=== PATIENT | female | born 1990 | race Caucasian/White ===

== ENCOUNTER 2016-09-05 05:34 | Inpatient (IN) | payer BC ==
[~2016-09-05 05:34] MED LIST: Citric Acid/Sodium Citrate Solution 30 ML Cup PO ONE; Clindamycin Phosphate 900 MG in Sodium Chloride 0.9% 100 ML IV ONE; Metoclopramide 10 MG/2 ML SDV IVPUSH ONE; Sodium Chloride 0.9% 10 ML Syringe FLUSH PRN
[2016-09-05] MEDS: Lactated Ringers 1,000 ML IV SCH ×2 (06:15→07:00)
[2016-09-05] MEDS ORDERED: Bupivacaine 0.5% 30 ML SDV ONE (06:54)
[2016-09-05] MEDS ORDERED: Morphine PF 10 MG/10 ML SDV ONE (07:46)
--- NOTE | 2016-09-05 07:54 | HP ---
Kellee has decided on a repeat [id number], benefits, follow up d/w pt. Consent is signed. Labs to include CBC, T and S. DATE OF ADMISSION: 09/05/2016 ADMISSION DIAGNOSIS: Term intrauterine at 39 and 5/7th weeks' gestational age, history of previous section with desire for repeat section. HISTORY OF PRESENT ILLNESS: The patient is a 25-year-old 3, para 1-0-1-1, white female, who will be admitted on 09/05/2016 for elective repeat section. The procedure, risks, benefits, possible complications, alternatives of care were all discussed in detail with the patient. She appears to understand and wishes to proceed. The patient has had a previous section done for failure to progress with resultant delivery of 9 pounds 7 ounce male infant in 2013. ANTHROPOLOGICAL LINGUIST HISTORY: 3, para 1-0-1-1, with 1 section and 1 miscarriage. The patient had menarche at age 11. Cycles are somewhat irregular at every 30 to 60 days. LMP started on 12/02/2015. Positive hCG was on 12/29/2015. The patient's is dated by her last menstrual period and this is supported by an ultrasound done on 05/17/2016 and at least 6 ultrasounds since that time. Prenatally, the patient has done relatively well. Her other concerns that she has been on labetalol for what was felt to be gestational hypertension. She initially thought about a trial labor to attempt a vaginal after section, but has decided not to. She declined genetic screening during the course. She declined flu vaccination. She declined Tdap vaccination. Her [place] depression screen score on 04/12/2016 was score of 3. This is normal. Group B strep screen was negative. The patient did have some dyspepsia during , which she treated conservatively. She has mild exercise-induced asthma. She has a history of polycystic ovarian syndrome. She also has occasional supraventricular tachycardia. She has a thyroid nodule. She had an abnormal glucose tolerance test of 137, but on evaluation of 3-hour it was normal. Her first visit was on 02/16/2016 at 10 and 6/7th weeks' gestational age. She is seen on a regular basis since that time and has gained 45 pounds up to a weight of 242 pounds. Her first visit weight was 209 pounds. Her blood pressures were normal until approximately 07/2016 at which time, they became somewhat elevated, and the patient was evaluated for preeclampsia. Her blood pressures were felt to be possibly a gestational hypertension in origin. She is presently on labetalol 100 mg p.o. q.12 hours. She has been doing very well with this. LABORATORY TESTING: In , shows blood to be O positive with a negative antibody screen. Early hemoglobin was 13.6, MCV was 90.4, and platelets were 240. Pap smear was negative. Rubella titer shows immunity. RPR is nonreactive. Hepatitis B surface antigen and HIV assays were negative. Chlamydia and gonorrhea were negative. Second trimester testing showed a hemoglobin of 12.0, an MCV of 91.5, platelets of 200. Her 1-hour GTT was 131, but her 3-hour GTT was 85 at fasting; 175 at 1 hour; 156 at 2 hours, and 3-hour level was 61. Her group B strep screen is negative. ALLERGIES: Bactrim which causes shortness of breath and cephalexin caps. CURRENT MEDICATIONS: 1. ProAir HFA 108 inhalation aerosol 2 puffs q.30 minutes p.r.n. prior to exercise. 2. Calcium 600 mg 1 tablet daily. 3. Dehydroepiandrosterone 25 mg tablets daily. 4. Labetalol 100 mg p.o. q.12 hours. 5. Albuterol sulfate nebulization solution p.r.n. 6. vitamins 1 daily. PAST MEDICAL HISTORY: 1. History of abnormal Pap smear. 2. History of asthma which is exercise-induced. 3. History of thyroid nodule diagnosed in 05/2015, stable on repeat evaluation in 11/2015. 4. Gestational hypertension. PAST SURGICAL HISTORY: Primary section for failure to progress in 2013. FAMILY HISTORY: Unremarkable. Specifically unremarkable for anesthesia, bleeding, or blood clotting problems. 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 She is college graduate. She does not use any significant amounts of alcohol, drugs, or tobacco. REVIEW OF SYSTEMS: HEAD, EARS, EYES, NOSE, and THROAT: Negative. LUNGS: Clear. CARDIOVASCULAR: Shows regular rate and rhythm. BREASTS: Deferred. ABDOMEN: Protuberant with with fundal height of 39 cm with baby in vertex presentation. Cervix is 2 cm dilated, 50% effaced, soft, posterior. EXTREMITIES: Unremarkable. NEUROLOGIC: Unremarkable. ASSESSMENT: 1. A 39 and 5/7th week intrauterine . At this time, the patient is admitted for elective induction of labor. 2. Risk factors for surgery include history of previous surgery and increased weight. 3. The patient desires spinal anesthesia for surgery. 4. The patient plans to nurse. PLAN: 1. Primary lower uterine segment transverse section through Pfannenstiel skin incision under spinal block scheduled for 09/05/2016 at 0800 hours. 2. DVT prophylaxis with SCDs. 3. Infection prophylaxis with clindamycin and gentamicin per protocol as the patient is allergic to Keflex. 4. Preoperative evaluation consists of CBC, type and screen. MMODAL /[id number]
[2016-09-05] MEDS ORDERED: ceFAZolin 1 GM Vial ONE (08:10)
--- NOTE | 2016-09-05 08:24 | PCM.PREANE ---
Preanesthetic Assessment - Anesthesia/Transfusion/Family Hx Anesthesia History: Prior Anesthesia Without Reaction (prior difficult spinal/ epidural, GA without problem) Family History of Anesthesia Reaction: No Transfusion History: No Prior Transfusion(s) - Review of Systems General: No Symptoms Pulmonary: No Symptoms Cardiovascular: Palpitations (secondary to known SVT since shildhood. treated with beta-cristóbal. Pt states she has almost daily paroxysms of SVT. no syncope ) Gastrointestinal: No symptoms Neurological: No Symptoms Other: Reports: None - Physical Assessment NPO Status Date: 09/04/16 NPO Status Time: 23:30 O2 Sat by Pulse Oximetry: 96 Respiratory Rate: 16 Vital Signs: Last Vital Signs Temp 36.2 C 09/05/16 00:12 Pulse 93 09/05/16 00:12 Resp 16 09/05/16 00:12 BP 130/81 09/05/16 00:12 Pulse Ox 96 09/05/16 00:12 Height: 1.73 m Weight: 110.45 kg ASA Class: 2 Mental Status: Alert & Oriented x3 Dentition: Reports: Normal Dentition Thyro-Mental Finger Breadths: 3 Mouth Opening Finger Breadths: 3 ROM/Head Extension: Full Lungs: Clear to auscultation, Normal respiratory effort Cardiovascular: Regular Rate, Regular Rhythm - Lab Values: CBC essentially normal with isolated elevated WBC count - Allergies Allergies/Adverse Reactions: Allergies Allergy/AdvReac Type Severity Reaction Status Date / Time cephalexin [Cephalexin] Allergy Cannot Verified 09/05/16 07:17 Remember sulfamethoxazole Allergy Difficulty Verified 09/05/16 07:17 [From Bactrim] Breathing trimethoprim [From Bactrim] Allergy Difficulty Verified 09/05/16 07:17 Breathing - Blood Blood Available: No - Anesthesia Plan Beta Cristóbal: Labetalol Med Last Dose Date: 09/04/16 Med Last Dose Time: 19:00 - Acknowledgements Anesthesia Type Planned: Spinal Pt an Appropriate Candidate for the Planned Anesthesia: Yes Alternatives and Risks of Anesthesia Discussed w Pt/Guardian: Yes Pt/Guardian Understands and Agrees with Anesthesia Plan: Yes PreAnesthesia Questionnaire - Past Health History Medical/Surgical History: Denies Medical/Surgical History Cardiovascular History: Reports: Hypertension, Other (see below) Other Cardiovascular History: SVT Respiratory History: Reports: Asthma BASS SINGER History: Reports: Polycystic Ovaries, , Spontaneous Endocrine/Metabolic History: Reports: Other (see below) Other Endocrine/Metabolic History: Nodule on thyroid - Past Surgical History HEENT Surgical History: Reports: Adenoidectomy, Oral surgery (wisdom teeth extractions), Tonsillectomy Cardiovascular Surgical History: Reports: None Female Surgical History: Reports: section - SUBSTANCE USE Smoking Status *Q: Never Smoker Tobacco Use Within Last Twelve Months: No Second Hand Smoke Exposure: No Days Per Week of Alcohol Use: 0 Recreational Drug Use History: No - HOME MEDS Home Medications: Home Meds Acetaminophen/oxyCODONE [Percocet 325-5 MG] 2 tab PO Q4H PRN #30 tablet [Rx] Docusate Sodium [Colace] 100 mg PO Q12H PRN #30 cap 02/07/14 [Rx] Ibuprofen 200 mg PO Q6HR PRN #50 tablet 02/07/14 [Rx] Labetalol [Normodyne] 100 mg PO BID #30 tablet 02/07/14 [Rx] Lanolin [Lansinoh HPA] 1 gm TOP ASDIRECTED PRN #1 crm 02/07/14 [Rx] Vit with Ca/FA/Iron [ Plus Iron] 1 each PO DAILY #100 tablet [Rx] - CURRENT (IN HOUSE) MEDS Current Meds: Current Medications Gentamicin Sulfate 550 mg/ (Sodium Chloride) 113.75 mls @ 200 mls/hr IV .ONETIME KRISTIN Lactated Ringer's (Ringers, Lactated) 1,000 mls @ 125 mls/hr IV ASDIRECTED KRISTIN Last Admin: 09/05/16 07:00 Dose: 125 mls/hr Oxytocin 20 unit/ Lactated (Ringer's) 1,002 mls @ 500 mls/hr IV ASDIRECTED KRISTIN Sodium Chloride (Saline Flush) 10 ml FLUSH ASDIRECTED PRN PRN Reason: Keep Vein Open Discontinued Medications Bupivacaine HCl (Marcaine 0.5%) Confirm Administered Dose 30 ml .ROUTE .STK-MED ONE Stop: 09/05/16 06:55 Cefazolin Sodium (Ancef) Confirm Administered Dose 2 gm .ROUTE .STK-MED ONE Stop: 09/05/16 08:11 Citric Acid/Sodium Citrate (Bicitra Solution) 30 ml PO ONETIME ONE Stop: 09/05/16 05:31 Last Admin: 09/05/16 07:23 Dose: 30 ml Clindamycin Phosphate 900 mg/ (Sodium Chloride) 106 mls @ 100 mls/hr IV ONETIME ONE Stop: 09/05/16 01:15 Clindamycin Phosphate 900 mg/ (Sodium Chloride) 106 mls @ 100 mls/hr IV ONETIME ONE Stop: 09/05/16 06:33 Metoclopramide HCl (Reglan) 10 mg IVPUSH ONETIME ONE Stop: 09/05/16 05:31 Last Admin: 09/05/16 07:23 Dose: 10 mg Morphine Sulfate (Duramorph Pf) Confirm Administered Dose 10 mg .ROUTE .STK-MED ONE Stop: 09/05/16 07:47 Preanesthetic Assessment - ANESTHESIA/TRANSFUSION/FAMILY HX Anesthesia/Transfusion History: No Prior Transfusion(s), Prior Anesthesia Family History of Anesthesia Reaction: No Intubation History: Unknown - PHYSICAL ASSESSMENT O2 Sat by Pulse Oximetry: 96 RR: 16 Vital Signs: Last Vital Signs Temp 36.2 C 09/05/16 00:12 Pulse 93 09/05/16 00:12 Resp 16 09/05/16 00:12 BP 130/81 09/05/16 00:12 Pulse Ox 96 09/05/16 00:12 Height: 1.73 m Weight: 110.45 kg NPO Status Date: 09/04/16 NPO Status Time: 23:30 - ALLERGIES Allergies/Adverse Reactions: Allergies Allergy/AdvReac Type Severity Reaction Status Date / Time cephalexin [Cephalexin] Allergy Cannot Verified 09/05/16 07:17 Remember sulfamethoxazole Allergy Difficulty Verified 09/05/16 07:17 [From Bactrim] Breathing trimethoprim [From Bactrim] Allergy Difficulty Verified 09/05/16 07:17 Breathing
--- NOTE | 2016-09-05 08:47 | PCM.OPNOTE ---
- General Post-Op/Procedure Note Date of Surgery/Procedure: 09/05/16 Operative Procedure(s): repeat lower uterine segment transverse section through Pfannenstiel skin Findings: uterus tubes and ovaries were within normal limits for term . Effluent was clear. Baby is in a vertex presentation the center was fundal and posterior with no evidence of previa. The cervix was dilated 2 cm. Pre Op Diagnosis: term intrauterine at 39 weeks, history of previous section with desire for repeat section Post-Op Diagnosis: Samedelivery of a 9 lbs. 1 oz. male Anesthesia Technique: Spinal Other Anesthesia Type: local with Marcaine 0.5%-20 cc total Primary Surgeon: Long Lui Secondary Surgeon: David Griffith Anesthesia Provider: Huy Salinas Housekeeping Lead: Vijaya Ocampo Fluid Replacement, Intraop: 650 Output, Urine Amount: 650 EBL in mLs: 900 Drain/Tube Comments:: indwelling bladder catheter Complications: None Condition: Good Free Text/Narrative:: Intake & Output 09/04/16 09/05/16 09/05/16 22:59 06:59 14:59 Output Total 650 Balance -650 surgeon duration: 40 minutes Specimens: None Condition: Satisfactory Procedure: Patient was transferred the room and placed in a sitting position. Spinal anesthesia was administered. After adequate anesthesia patient was placed in a supine position with a wedge under her right side to facilitate left lateral positioning. The patient was prepped and draped in usual fashion after Victor catheter was placed. The anesthetic was checked and found to be adequate. Marcaine 0.5%-20 cc was infiltrated into the section incision site. The Pfannenstiel skin incision was then made carried down to skin subcutaneous and fascial layers. The fascia was then undermined superiorly and inferiorly to allow for adequate operating room. The recti muscles were midline and preperitoneal fat was bluntly dissected. Peritoneal cavity was entered longitudinally. The vesicouterine peritoneum was then incised transversely and bladder flap was developed. Myometrium was incised transversely to the level of the amniotic sac. This incision was extended bilaterally in a blunt fashion. The amniotic sac was then ruptured resulting clear amniotic fluid. A hand is placed into the lower uterine segment and the baby's head was brought forth through the incision. The baby was completely delivered using with fundal pressure in a routine fashion. The nose and mouth were bulb suctioned. Baby's cord was clamped x2 cut and baby was handed off to attending cook fruit Dr. Pina. Placenta was expressed after cord blood was obtained. Uterus was then exteriorized to allow for easier closure. The cervix was assessed and found to be dilated adequately to allow egress of blood. The uterus was closed in 2 layers. The first layer a running locked suture of 0 Monocryl, the second layer a running locked vertical mattress suture of 0 Monocryl. Hemostasis confirmed at this time. Sponge, instrument, needle counts are correct. The uterus was returned to the abdominal cavity and lateral gutters were cleared of blood. Once again sponge, needle counts are correct. The anterior abdominal wall was closed with a #1 PDS suture from angle to angle. The subcutaneous area was found to be free of any bleeders. Skin was closed with a running subcuticular stitch of 3-0 Monocryl in a vertical mattress suture fashion using a Renzo needle. It was further approximated with Dermabond Prineo skin mesh/glue. It should be noted that patient received 2 g of Ancef preoperatively for infection prophylaxis and had Pitocin infused after delivery of the placenta to facilitate uterine contraction. She also had sequential compression stockings in place for DVT prophylaxis.
--- NOTE | 2016-09-05 08:54 | PCM.POSTAN ---
POST ANESTHESIA ASSESSMENT - MENTAL STATUS Mental Status: alert, oriented - VITAL SIGNS Pulse Rate: 84 SaO2: 98 Resp Rate: 12 Blood Pressure: 134/69 Temperature: 36.9 C - RESPIRATORY Respiratory Status: respiratory rate WNL, airway patent, O2 saturation stable - CARDIOVASCULAR CV Status: pulse rate WNL, blood pressure stable - GASTROINTESTINAL GI Status: no symptoms - PAIN Pain Score: 0 - POST OP HYDRATION Hydration Status: adequate & stable
[2016-09-05] MEDS ORDERED: Ketorolac 30 MG/ML SDV IVPUSH SCH (09:00)
[2016-09-05] MEDS ORDERED: ePHEDrine 50 MG/ML SDV IVPUSH PRN (09:38)
[2016-09-05] MEDS ORDERED: diphenhydrAMINE 50 MG/ML SDV IVPUSH PRN (09:38)
[2016-09-05] MEDS ORDERED: Dextrose 5%-Lactated Ringers 1,000 ML IV SCH (09:38)
[2016-09-05] MEDS ORDERED: Naloxone 0.4 MG/ML SDV IVPUSH PRN (09:38)
[2016-09-05] MEDS ORDERED: Lanolin 100% Cream 7 GM Tube TOP PRN (09:38)
[2016-09-05] MEDS ORDERED: Ondansetron 4 MG/2 ML SDV IV PRN (09:38)
[2016-09-05] MEDS ORDERED: Dextrose 5%-0.45% NaCl 1,000 ML IV SCH (09:38)
[2016-09-05] MEDS: Simethicone 80 MG Tab.Chew PO SCH ×4 (11:27→22:02)
[2016-09-05] MEDS: Docusate Sodium 100 MG Cap PO PRN (13:27)
[2016-09-05] MEDS ORDERED: Ibuprofen 800 MG Tab PO PRN ×2 (15:00→23:03)
[2016-09-05] MEDS: Ibuprofen 800 MG Tab PO SCH (23:04)
[2016-09-06] MEDS: Acetaminophen/oxyCODONE 325-5 MG Tab PO PRN ×3 (06:13→16:25)
[2016-09-06] MEDS: Ibuprofen 800 MG Tab PO SCH ×2 (06:54→15:36)
--- NOTE | 2016-09-06 09:00 | PCM48HPAN ---
Post Anesthesia Note - EVALUATION WITHIN 48HRS OF ANESTHETIC Vital Signs in Normal Range: Yes Patient Participated in Evaluation: Yes Respiratory Function Stable: Yes Airway Patent: Yes Cardiovascular Function Stable: Yes Hydration Status Stable: Yes Pain Control Satisfactory: Yes Nausea and Vomiting Control Satisfactory: Yes Mental Status Recovered: Yes - COMMENTS/OBSERVATIONS Free Text/Narrative:: Pt doing well, pleased with anesthesia service overall. denies fever,/chills, n /v, or headache. reports full recovery from spinal for both strength and sensation. up to restroom without difficulty, taking p.o., reports minor soreness at spinal site.
[2016-09-06] MEDS: Simethicone 80 MG Tab.Chew PO SCH ×3 (09:14→17:26)
--- NOTE | 2016-09-06 09:23 | PCM.SN ---
- Free Text/Narrative Note: Subjective: Kellee is post-operative day #1 today. She is feeling pretty good, pain is well controlled. She states nursing is going much better than her last as baby is latching well. She is looking forward to taking a shower today. Objective: Vital signs are stable. She is afebrile. Cardiovascular: Regular rate and rhythm, without murmur. Respiratory: Clear to auscultation, bilaterally. Abdomen is soft, nondistended, and nontender. Incision in intact, without erythema or signs of infection. No peripheral edema or swelling. Assessment: 1. Post-repeat section day #1 2. Pain controlled. 3. Nursing going well. Plan: 1. Patient may go home as early as tomorrow. 2. Continue to stay on top of pain. 3. Encourage nursing behaviors.
[2016-09-07] MEDS: Ibuprofen 800 MG Tab PO SCH ×4 (00:32→22:51)
[2016-09-07] MEDS: Simethicone 80 MG Tab.Chew PO SCH ×5 (00:35→22:51)
[2016-09-07] MEDS: Acetaminophen/oxyCODONE 325-5 MG Tab PO PRN ×4 (02:44→18:04)
[2016-09-07] MEDS: Docusate Sodium 100 MG Cap PO PRN ×2 (06:43→22:50)
--- NOTE | 2016-09-07 08:49 | PCM.SN ---
- Free Text/Narrative Note: Subjective: Kellee is post-operative day #2 today. She is doing well, pain is well controlled - she had a little more pain later yesterday afternoon but medication easily took care of it. Nursing is going well still. She would like to stay until tomorrow. Objective: Vital signs are stable. She is afebrile. Abdomen is soft, nondistended, and nontender. Incision in intact, without erythema or signs of infection. No peripheral edema or swelling. Assessment: 1. Post-repeat section day #2 2. Pain controlled. 3. Nursing going well. Plan: 1. Discharge tomorrow morning. 2. Continue to stay on top of pain with medication. 3. Encourage nursing behaviors.
[2016-09-08] MEDS: Acetaminophen/oxyCODONE 325-5 MG Tab PO PRN ×2 (03:44→10:29)
--- NOTE | 2016-09-08 06:37 | PCM.DCSUM1 ---
Discharge Summary - Hospital Course Free Text/Narrative:: Kellee is a 25-year-old 2 now para 2002 white female who was admitted 3 days ago for elective repeat section. She delivered a 9 lbs. 1 oz. male infant with Apgars of 8 and 9. Postoperatively patient has done very well. She is nursing without problems, has minimal lochia, is voiding well and ambulating without concerned. Patient is desiring discharge today. - Discharge Data Discharge Date: 09/08/16 Discharge Disposition: Home, Self-Care 01 Condition: Good - Patient Summary/Data Operative Procedure(s) Performed: repeat lower uterine segment transverse section through Pfannenstiel skin - Patient Instructions Diet: Regular Diet as Tolerated (nursing diet and increase calories and calcium as directed) Activity: As Tolerated (No intercourse or tampons until seen back. No lifting greater than 15 pounds or driving a car x1 week.) Driving: Do Not Drive Showering/Bathing: May Shower Wound/Incision Care: Keep Operative Site/Wound Site Clean and Dry Notify Provider of: Fever, Increased Pain, Swelling and Redness, Drainage, Nausea and/or Vomiting - Discharge Plan Prescriptions/Med Rec: Acetaminophen/oxyCODONE [Percocet 325-5 MG] 2 tab PO Q4H PRN #30 tablet PRN Reason: Pain Home Medications: Home Meds Acetaminophen/oxyCODONE [Percocet 325-5 MG] 2 tab PO Q4H PRN #30 tablet [Rx] Docusate Sodium [Colace] 100 mg PO Q12H PRN #30 cap 02/07/14 [Rx] Ibuprofen 200 mg PO Q6HR PRN #50 tablet 02/07/14 [Rx] Lanolin [Lansinoh HPA] 1 gm TOP ASDIRECTED PRN #1 crm 02/07/14 [Rx] Vit with Ca/FA/Iron [ Plus Iron] 1 each PO DAILY #100 tablet [Rx] Acetaminophen/oxyCODONE [Percocet 325-5 MG] 2 tab PO Q4H PRN #30 tablet [Rx] Ibuprofen [IJD: Ibuprofen] 800 mg PO Q8H tablet 09/08/16 [Rx] Referrals: Long Lui MD [Physician] - (Return to clinic-Dr. Lui in 7-10 days for blood pressure evaluation. Four-week's from now for a final postoperative follow up.) - Discharge Summary/Plan Comment DC Time >30 min.: No Discharge Summary/Plan Comment: Discharge instructions: 1. Discharge 1 para 2. Regular, high-fiber, nursing diet with increase calories and calcium as discussed. 3. Precautions given concern increased pain, bleeding, temperature, blood pressure, signs/symptoms of DVT/PE. 4. Medications per home medication was printed, discussed with him given to the patient 5. Return to clinic-Dr. Lui-7-10 days-blood pressure evaluation. Also make an appointment for 4 weeks from now for final postoperative evaluation. Diagnosis: 1. 39 week intrauterine , history of previous section desire for repeat section-delivered 2. Gestational hypertension-postoperative blood pressures within normal limits. Condition: Good - Patient Data Vitals - Most Recent: Last Vital Signs Temp 36.9 C 09/08/16 03:39 Pulse 82 09/08/16 03:39 Resp 16 09/08/16 03:39 BP 143/79 H 09/08/16 03:39 Pulse Ox 100 09/08/16 03:40 Weight - Most Recent: 110.45 kg I&O - Last 24 hours: Intake & Output 09/07/16 09/07/16 09/08/16 14:59 22:59 06:59 Intake Total 120 0 Balance 120 0 Med Orders - Current: Current Medications Diphenhydramine HCl (Benadryl) 25 mg IVPUSH Q6H PRN PRN Reason: Itching or Nausea Docusate Sodium (Colace) 100 mg PO Q12H PRN PRN Reason: Constipation Last Admin: 09/07/16 22:50 Dose: 100 mg Emollient Ointment (Lansinoh Hpa) 0 gm TOP ASDIRECTED PRN PRN Reason: Sore Nipples Last Admin: 09/05/16 13:28 Dose: 1 applic Ephedrine Sulfate (Ephedrine Sulfate) 5 mg IVPUSH SEECOMMENT PRN PRN Reason: Other Dextrose/Sodium Chloride (Dextrose 5%-1/2 Ns) 1,000 mls @ 125 mls/hr IV ASDIRECTED KRISTIN Last Admin: 09/05/16 17:55 Dose: 125 mls/hr Ibuprofen (Motrin) 800 mg PO Q8H KRISTIN Last Admin: 09/07/16 22:51 Dose: 800 mg Naloxone HCl (Narcan) 0.1 mg IVPUSH SEECOMMENT PRN PRN Reason: Respiratory Depression Ondansetron HCl (Zofran) 4 mg IV Q4H PRN PRN Reason: Nausea/Vomiting Last Admin: 09/05/16 11:00 Dose: 4 mg Oxycodone/Acetaminophen (Percocet 325-5 Mg) 2 tab PO Q4H PRN PRN Reason: Pain (moderate 4-6) Last Admin: 09/08/16 03:44 Dose: 2 tab Simethicone (Simethicone) 80 mg PO PCBED [facility] Last Admin: 09/07/16 22:51 Dose: 80 mg Discontinued Medications Bupivacaine HCl (Marcaine 0.5%) Confirm Administered Dose 30 ml .ROUTE .STK-MED ONE Stop: 09/05/16 06:55 Last Admin: 09/05/16 07:58 Dose: 20 ml Cefazolin Sodium (Ancef) Confirm Administered Dose 2 gm .ROUTE .STK-MED ONE Stop: 09/05/16 08:11 Citric Acid/Sodium Citrate (Bicitra Solution) 30 ml PO ONETIME ONE Stop: 09/05/16 05:31 Last Admin: 09/05/16 07:23 Dose: 30 ml Clindamycin Phosphate 900 mg/ (Sodium Chloride) 106 mls @ 100 mls/hr IV ONETIME ONE Stop: 09/05/16 01:15 Last Admin: 09/06/16 13:31 Dose: Not Given Gentamicin Sulfate 550 mg/ (Sodium Chloride) 113.75 mls @ 200 mls/hr IV .ONETIME [facility] Lactated Ringer's (Ringers, Lactated) 1,000 mls @ 125 mls/hr IV ASDIRECTED [facility] Last Admin: 09/05/16 07:00 Dose: 125 mls/hr Clindamycin Phosphate 900 mg/ (Sodium Chloride) 106 mls @ 100 mls/hr IV ONETIME ONE Stop: 09/05/16 06:33 Last Admin: 09/06/16 07:38 Dose: Not Given Oxytocin 20 unit/ Lactated (Ringer's) 1,002 mls @ 500 mls/hr IV ASDIRECTED [facility] Last Admin: 09/05/16 09:24 Dose: 500 mls/hr Dextrose/Lactated Ringer's (Dextrose 5%-Lactated Ringers) 1,000 mls @ 125 mls/ hr IV ASDIRECTED KRISTIN Stop: 09/05/16 17:37 Last Admin: 09/05/16 11:27 Dose: 125 mls/hr Ibuprofen (Motrin) 800 mg PO Q8H PRN PRN Reason: mild pain or fever Last Admin: 09/05/16 15:12 Dose: 800 mg Ibuprofen (Motrin) 800 mg PO Q8H PRN PRN Reason: Pain Ketorolac Tromethamine (Toradol) 30 mg IVPUSH ONETIME KRISTIN Stop: 09/05/16 16:00 Last Admin: 09/05/16 09:05 Dose: 30 mg Metoclopramide HCl (Reglan) 10 mg IVPUSH ONETIME ONE Stop: 09/05/16 05:31 Last Admin: 09/05/16 07:23 Dose: 10 mg Morphine Sulfate (Duramorph Pf) Confirm Administered Dose 10 mg .ROUTE .STK-MED ONE Stop: 09/05/16 07:47 Sodium Chloride (Saline Flush) 10 ml FLUSH ASDIRECTED PRN PRN Reason: Keep Vein Open *Q Meaningful Use (DIS) - VTE *Q VTE Criteria *Q: - Stroke *Q Stroke Criteria *Q: - AMI *Q AMI Criteria *Q:
[2016-09-08] MEDS: Ibuprofen 800 MG Tab PO SCH (07:18)
[2016-09-08 10:51] VITALS: BP 135/82
== END 2016-09-08 11:40 | disposition home or self-care (01) | DRG 540 ==
LOC: JD.OB 05:34
PROVIDERS: ADMIT Obstetrics & Gynecology; ATTEND Obstetrics & Gynecology
PROC: 10D00Z1 Extraction of Products of Conception, Low, Open Approach (ICD-10-PCS; principal; 2016-09-05)
DX: O34.211 Maternal care for low transverse scar from previous cesarean delivery (principal); N85.8 Other specified noninflammatory disorders of uterus; Z3A.40 40 weeks gestation of pregnancy; Z37.0 Single live birth; Z88.1 Allergy status to other antibiotic agents; O13.4 Gestational [pregnancy-induced] hypertension without significant proteinuria, complicating childbirth; J45.909 Unspecified asthma, uncomplicated
CPT/HCPCS: 01961; 36415; 85025; 94762; A9270-GY; J0690; J1885; J2270; J2405; J2590; J2765; J7042; J7120

== ENCOUNTER 2016-10-14 21:33 | Emergency (ER) | payer BC ==
[2016-10-14 21:45] VITALS: BP 145/90
--- NOTE | 2016-10-14 22:14 | EDM.PDOC ---
ED HPI GENERAL MEDICAL PROBLEM - General Chief Complaint: Abdominal Pain Stated Complaint: ABDOMINAL PAIN DIARRHEA Time Seen by Provider: 10/14/16 21:40 Source of Information: Reports: Patient History Limitations: Reports: No Limitations - History of Present Illness INITIAL COMMENTS - FREE TEXT/NARRATIVE: This is a 25-year-old female. 6 weeks ago she had her scheduled C- section that went successfully. During her hospitalization she got IV clindamycin and IV gentamicin. She started with epigastric type pain about 3 weeks ago. The pain will at times go into her back and more to the left side than the right. When the pain is intense she has some nausea and get slightly sweaty. Then about 14 days ago she started having watery stools that were explosive with no formed stools and it smells bad. She has not had any blood in her stool, they have not been green in appearance. She's had no fever or chills noted. She has no history of reflux no history of gallbladder disease she has not had any urinary symptoms and post she has been doing well with no urinary symptoms. Her stools about 7-10 per day she is able to keep fluids down. She does not appear to be in acute distress at this point. She does state that when her abdomen begins to gurgle in shortly after that she'll have diarrhea. She has tried [id number] Imodium but is not helping. Upper Abdomen Pain Score (Numeric/FACES): 2 - Related Data Allergies Allergy/AdvReac Type Severity Reaction Status Date / Time cephalexin [Cephalexin] Allergy Cannot Verified 09/05/16 07:17 Remember sulfamethoxazole Allergy Difficulty Verified 09/05/16 07:17 [From Bactrim] Breathing trimethoprim [From Bactrim] Allergy Difficulty Verified 09/05/16 07:17 Breathing Home Meds: Home Meds Lanolin [Lansinoh HPA] 1 gm TOP ASDIRECTED PRN #1 crm 02/07/14 [Rx] Vit with Ca/FA/Iron [ Plus Iron] 1 each PO DAILY #100 tablet [Rx] Atropine/Diphenoxylate [Lomotil 0.025-2.5 MG] 1 tab PO BID #20 tablet 10/15/16 [ Rx] Past Medical History - Past Health History Medical/Surgical History: Denies Medical/Surgical History Cardiovascular History: Reports: Hypertension Other Cardiovascular History: SVT Respiratory History: Reports: Asthma HAIR DRESSER History: Reports: Polycystic Ovaries, , Spontaneous Endocrine/Metabolic History: Reports: Other (See Below) Other Endocrine/Metabolic History: Nodule on thyroid - Past Surgical History HEENT Surgical History: Reports: Adenoidectomy, Oral Surgery, Tonsillectomy Female Surgical History: Reports: Section Social & Family History - Tobacco Use Smoking Status *Q: Never Smoker Second Hand Smoke Exposure: No - Caffeine Use Caffeine Use: Reports: Coffee, Energy Drinks, Soda - Alcohol Use Days Per Week of Alcohol Use: 0 - Recreational Drug Use Recreational Drug Use: No ED ROS GENERAL - Review of Systems Review Of Systems: See Below Constitutional: Denies: Fever, Chills HEENT: Reports: No Symptoms Respiratory: Reports: No Symptoms Cardiovascular: Reports: No Symptoms Endocrine: Reports: No Symptoms GI/Abdominal: Reports: Abdominal Pain, Diarrhea, Nausea. Denies: Black Stool, Bloody Stool, Melena, Vomiting : Reports: No Symptoms Musculoskeletal: Reports: No Symptoms Skin: Reports: No Symptoms Neurological: Reports: No Symptoms Psychiatric: Reports: No Symptoms Hematologic/Lymphatic: Reports: No Symptoms ED EXAM, GI/ABD - Physical Exam Exam: See Below Exam Limited By: No Limitations General Appearance: Alert, WD/WN, No Apparent Distress Eyes: Bilateral: Normal Appearance Ears: Normal External Exam Nose: Normal Inspection Throat/Mouth: Normal Inspection, Normal Lips, Normal Voice Head: Normocephalic Neck: Normal Inspection, Supple Respiratory/Chest: No Respiratory Distress, Lungs Clear, Normal Breath Sounds Cardiovascular: Regular Rate, Rhythm, No Murmur GI/Abdominal: Soft, Non-Tender, Hypoactive Bowel Sounds, Other (Palpation minimal epigastric tenderness on palpation, no right upper quadrant the left upper quadrant pain, negative May's, no new lower abdominal tenderness on palpation) Back Exam: Normal Inspection, Full Range of Motion Extremities: Normal Inspection, Normal Range of Motion Neurological: Alert, Oriented Psychiatric: Normal Affect, Normal Mood Skin Exam: Warm, Dry Course - Vital Signs Last Recorded V/S: Last Vital Signs Temp 98.3 F 10/14/16 21:44 Pulse 71 10/14/16 21:44 Resp 20 10/14/16 21:44 BP 145/90 H 10/14/16 21:44 Pulse Ox 97 10/14/16 21:44 - Orders/Labs/Meds Orders: Active Orders 24 hr Category Date Time Status CULTURE STOOL + SHIGATOX [RM] Stat Lab 10/14/16 22:48 Received [facility] 1 & 2 RT-PCR Stat Lab 10/14/16 22:48 Received Labs: Laboratory Tests 10/14/16 10/14/16 10/14/16 Range/Units 22:10 22:10 22:48 WBC 10.55 H (3.98-10.04) K/mm3 RBC 4.48 (3.98-5.22) M/mm3 Hgb 12.9 (11.2-15.7) gm/L Hct 39.6 (34.1-44.9) % MCV 88.4 (79.4-94.8) fl MCH 28.8 (25.6-32.2) pg MCHC 32.6 (32.2-35.5) g/dl RDW Std Deviation 42.9 (36.4-46.3) fL Plt Count 227 (182-369) K/mm3 MPV 10.8 (9.4-12.3) fl Neut % (Auto) 38.2 (34.0-71.1) % Lymph % (Auto) 32.6 (19.3-51.7) % [place] % (Auto) 6.6 (4.7-12.5) % Eos % (Auto) 22.0 H (0.7-5.8) Baso % (Auto) 0.4 (0.1-1.2) % Neut # (Auto) 4.03 (1.56-6.13) K/mm3 Lymph # (Auto) 3.44 (1.18-3.74) K/mm3 [place] # (Auto) 0.70 H (0.24-0.36) K/mm3 Eos # (Auto) 2.32 H (0.04-0.36) K/mm3 Baso # (Auto) 0.04 (0.01-0.08) K/mm3 Manual Slide Review Abnormal smear Sodium 143 (136-145) mEq/L Potassium 3.7 (3.5-5.1) mEq/L Chloride 107 (98-107) mEq/L Carbon Dioxide 27 (21-32) mEq/L Anion Gap 12.7 (5-15) BUN 11 (7-18) mg/dL Creatinine 1.0 (0.55-1.02) mg/dL Est Cr Clr Drug Dosing 86.00 mL/min Estimated GFR (MDRD) > 60 (>60) mL/min BUN/Creatinine Ratio 11.0 L (14-18) Glucose 95 (74-106) mg/dL Calcium 8.4 L (8.5-10.1) mg/dL Total Bilirubin 0.3 (0.2-1.0) mg/dL AST 23 (15-37) U/L ALT 30 (14-59) U/L Alkaline Phosphatase 116 (46-116) U/L Total Protein 6.2 L (6.4-8.2) g/dl Albumin 3.1 L (3.4-5.0) g/dl Globulin 3.1 gm/dL Albumin/Globulin Ratio 1.0 (1-2) Urine Color Yellow (Yellow) Urine Appearance Clear (Clear) Urine pH 6.5 (5.0-8.0) Ur Specific [place] 1.015 (1.005-1.030) Urine Protein Negative (Negative) Urine Glucose (UA) Negative (Negative) Urine Ketones Negative (Negative) Urine Occult Blood Negative (Negative) Urine Nitrite Negative (Negative) Urine Bilirubin Negative (Negative) Urine Urobilinogen 0.2 (0.2-1.0) Ur Leukocyte Esterase Negative (Negative) Urine RBC Not seen (0-5) /hpf Urine WBC 0-5 (0-5) /hpf Ur Epithelial Cells 0-5 (0-5) /hpf Ur Squamous Epith Cells 0-5 (0-5) /hpf Urine Bacteria Not seen (FEW) /hpf Urine Mucus Few (FEW) /hpf C.difficile [id number]-[id number] C. difficile Tox (PCR) 10/14/16 Range/Units 22:48 WBC (3.98-10.04) K/mm3 RBC (3.98-5.22) M/mm3 Hgb (11.2-15.7) gm/L Hct (34.1-44.9) % MCV (79.4-94.8) fl MCH (25.6-32.2) pg MCHC (32.2-35.5) g/dl RDW Std Deviation (36.4-46.3) fL Plt Count (182-369) K/mm3 MPV (9.4-12.3) fl Neut % (Auto) (34.0-71.1) % Lymph % (Auto) (19.3-51.7) % [place] % (Auto) (4.7-12.5) % Eos % (Auto) (0.7-5.8) Baso % (Auto) (0.1-1.2) % Neut # (Auto) (1.56-6.13) K/mm3 Lymph # (Auto) (1.18-3.74) K/mm3 [place] # (Auto) (0.24-0.36) K/mm3 Eos # (Auto) (0.04-0.36) K/mm3 Baso # (Auto) (0.01-0.08) K/mm3 Manual Slide Review Sodium (136-145) mEq/L Potassium (3.5-5.1) mEq/L Chloride (98-107) mEq/L Carbon Dioxide (21-32) mEq/L Anion Gap (5-15) BUN (7-18) mg/dL Creatinine (0.55-1.02) mg/dL Est Cr Clr Drug Dosing mL/min Estimated GFR (MDRD) (>60) mL/min BUN/Creatinine Ratio (14-18) Glucose (74-106) mg/dL Calcium (8.5-10.1) mg/dL Total Bilirubin (0.2-1.0) mg/dL AST (15-37) U/L ALT (14-59) U/L Alkaline Phosphatase (46-116) U/L Total Protein (6.4-8.2) g/dl Albumin (3.4-5.0) g/dl Globulin gm/dL Albumin/Globulin Ratio (1-2) Urine Color (Yellow) Urine Appearance (Clear) Urine pH (5.0-8.0) Ur Specific [place] (1.005-1.030) Urine Protein (Negative) Urine Glucose (UA) (Negative) Urine Ketones (Negative) Urine Occult Blood (Negative) Urine Nitrite (Negative) Urine Bilirubin (Negative) Urine Urobilinogen (0.2-1.0) Ur Leukocyte Esterase (Negative) Urine RBC (0-5) /hpf Urine WBC (0-5) /hpf Ur Epithelial Cells (0-5) /hpf Ur Squamous Epith Cells (0-5) /hpf Urine Bacteria (FEW) /hpf Urine Mucus (FEW) /hpf C.difficile [id number]-[id number] Presumptive negative C. difficile Tox (PCR) Negative - Re-Assessments/Exams Free Text/Narrative Re-Assessment/Exam: 10/15/16 00:36 I spoke to the patient regarding her lab results. She does not have C. difficile at this time. This could be a functional diarrhea versus maybe a mild colitis or ulcerative type disease causing the diarrhea. At one time states she did have an ulcer that healed up without problem on medications. I suggested getting some probiotics and yogurt with active cultures and taking that a regular basis to see if that'll help the diarrhea. I also suggested Zantac 150 mg twice a day to help with the burning sensation in her epigastric area. I will also provide some Lomotil which is considered relatively safe during . Departure - Departure Time of Disposition: 00:40 Disposition: Home, Self-Care 01 Condition: good Clinical Impression: Epigastric abdominal pain Diarrhea Qualifiers: Diarrhea type: unspecified type Qualified Code(s): R19.7 - Diarrhea, unspecified - Discharge Information Prescriptions: Atropine/Diphenoxylate [Lomotil 0.025-2.5 MG] 1 tab PO BID #20 tablet Referrals: Long Lui MD [Primary Care Provider] - Forms: ED Department Discharge Additional Instructions: Continue with good hydration, use the Lomotil one tablet 2-3 times a day to help with the diarrhea, get some [id number] Zantac 150 mg and take it twice a day, also start on some probiotics take them 3 times a day, get some yogurt with active cultures and eat it 3-4 times a day, if this does not seem to help your diarrhea you need to see your family doctor and be referred to a GI specialist for evaluation, we ruled out most of the worst things that can cause infectious diarrhea but several labs will come back in a few days and if they are positive we will call you, if there is marked worsening of your symptoms or you develop fever or chills return to the ER immediately - My Orders Last 24 Hours: My Active Orders 10/14/16 22:48 CULTURE STOOL + SHIGATOX [RM] Stat [facility] 1 & 2 RT-PCR Stat - Assessment/Plan Last 24 Hours: My Active Orders 10/14/16 22:48 CULTURE STOOL + SHIGATOX [RM] Stat [facility] 1 & 2 RT-PCR Stat
== END 2016-10-15 01:08 | disposition home or self-care (01) ==
LOC: JD.ED 21:33
DX: R10.13 Epigastric pain (principal); R19.7 Diarrhea, unspecified; I10 Essential (primary) hypertension; J45.909 Unspecified asthma, uncomplicated; Z88.1 Allergy status to other antibiotic agents; Z88.2 Allergy status to sulfonamides; Z79.899 Other long term (current) drug therapy; Z98.890 Other specified postprocedural states
CPT/HCPCS: 36415; 80053; 81001; 85025; 87046; 87425; 87427; 87493; 87798; 99283; 99284

== ENCOUNTER 2017-05-25 20:14 | Emergency (ER) | payer BC ==
--- NOTE | 2017-05-25 20:30 | EDM.PDOC ---
ED HPI GENERAL MEDICAL PROBLEM - General Chief Complaint: Genitourinary Problem Stated Complaint: POSS KIDNEY INFECTION Time Seen by Provider: 05/25/17 20:30 Source of Information: Reports: Patient History Limitations: Reports: No Limitations - History of Present Illness INITIAL COMMENTS - FREE TEXT/NARRATIVE: 26-year-old female presents to the ED with low-grade fever and developing low back right flank pain. Patient states she developed urinary tract symptoms of dysuria urgency and frequency May 22. She had some leftover antibiotics at home not sure what they were but was able to take them for a day and a half. This seemed to provide symptom relief but a day later she started to develop dysuria urgency and frequency once again. She was thus seen in the clinic yesterday and started on Macrobid 100 mg twice a day for 7 days. She has taken one tablet. At the time she was seen she was not having any back pain or fever. Symptoms are worsened over the last 6-8 hours. She gives a history of polynephritis in the past. She is breast-feeding at this time and therefore has some concerns about taking antibiotics while breast-feeding. Onset: Sudden Onset Date: 05/22/17 Duration: Day(s): (See history of present illness) Location: Reports: Abdomen (Now developing), Back (Currently developing right flank low back pain) Quality: Reports: Ache, Throbbing Severity: Moderate Improves with: Reports: Medication (Motrin helps somewhat.) Worsens with: Reports: None Context: Reports: Other (See history present illness). Denies: Activity, Exercise, Lifting, Sick Contact, Trauma Associated Symptoms: Reports: Fever/Chills (Fever of 100 noted today.), Malaise , Other (Right flank low back pain). 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 Right Flank Pain Score (Numeric/FACES): 6 - Related Data Allergies Allergy/AdvReac Type Severity Reaction Status Date / Time cephalexin [Cephalexin] Allergy Cannot Verified 05/25/17 20:24 Remember sulfamethoxazole Allergy Difficulty Verified 05/25/17 20:24 [From Bactrim] Breathing trimethoprim [From Bactrim] Allergy Difficulty Verified 05/25/17 20:24 Breathing Home Meds: Home Meds Vit with Ca/FA/Iron [ Plus Iron] 1 each PO DAILY #100 tablet [Rx] Albuterol Sulfate [Proventil Hfa] 6.7 gm IH ASDIRECTED PRN 05/25/17 [History] Nitrofurantoin [place]/Macrocryst [Macrobid] 1 tab PO BID 05/25/17 [History] Past Medical History - Past Health History Medical/Surgical History: Denies Medical/Surgical History Cardiovascular History: Reports: Hypertension Other Cardiovascular History: SVT Respiratory History: Reports: Asthma MANAGER LONG TERM CARE History: Reports: Polycystic Ovaries, , Spontaneous Endocrine/Metabolic History: Reports: Other (See Below) Other Endocrine/Metabolic History: Nodule on thyroid - Past Surgical History HEENT Surgical History: Reports: Adenoidectomy, Oral Surgery, Tonsillectomy Female Surgical History: Reports: Section Social & Family History - Tobacco Use Smoking Status *Q: Never Smoker Second Hand Smoke Exposure: No - Caffeine Use Caffeine Use: Reports: Coffee, Energy Drinks, Soda - Alcohol Use Days Per Week of Alcohol Use: 0 - Recreational Drug Use Recreational Drug Use: No - Living Situation & Occupation Living situation: Reports: ([id number].) Occupation: Unemployed ED ROS GENERAL - Review of Systems Review Of Systems: See Below Constitutional: Reports: Fever, Malaise, Fatigue, Decreased Appetite. Denies: Chills, Weight Loss HEENT: Reports: No Symptoms Respiratory: Reports: No Symptoms Cardiovascular: Reports: No Symptoms Endocrine: Reports: No Symptoms GI/Abdominal: Reports: Abdominal Pain (Some suprapubic pressure discomfort) : Reports: Dysuria (Development of right flank pain low back pain over the last 6-8 hours.), Flank Pain, Frequency, Urgency Musculoskeletal: Reports: Back Pain Skin: Reports: No Symptoms (Right flank pain) Neurological: Reports: No Symptoms ED EXAM, RENAL/ - Physical Exam Exam: See Below General Appearance: Alert, WD/WN, Mild Distress, Other (Does feel mildly warm to palpation.) Eye Exam: Bilateral Eye: Normal Inspection Throat/Mouth: Normal Inspection, Normal Lips, Normal Oropharynx Head: Atraumatic, Normocephalic Neck: Normal Inspection, Supple, Non-Tender, Full Range of Motion. No: Lymphadenopathy (R) Respiratory/Chest: No Respiratory Distress, Lungs Clear, Normal Breath Sounds, Respiratory Distress Cardiovascular: Regular Rate, Rhythm (Mild tachycardia at rest 10 8/m.), No Edema, No Gallop, No Murmur, No Rub, Tachycardia GI/Abdominal: Normal Bowel Sounds, Soft, Non-Tender, No Organomegaly, No Mass, Pelvis Stable, Tender (Mild tenderness suprapubically.) Back Exam: CVA Tenderness (R) (Moderate. Particularly inferior to the right costovertebral angle.). No: CVA Tenderness (L), Decreased Range of Motion, Muscle Spasm, Vertebral Tenderness Extremities: Normal Inspection, Normal Range of Motion, Non-Tender, No Pedal Edema Neurological: Alert, Oriented, CN II-XII Intact, Normal Cognition, Normal Gait Psychiatric: Normal Affect, Anxious Skin Exam: Warm, Dry, Intact, Normal Color Course - Vital Signs Last Recorded V/S: Last Vital Signs Temp 36.9 C 05/25/17 20:35 Pulse 105 H 05/25/17 20:35 Resp 16 05/25/17 20:35 BP 130/102 H 05/25/17 20:35 Pulse Ox 97 05/25/17 20:35 - Orders/Labs/Meds Labs: Laboratory Tests 05/25/17 Range/Units 20:30 Urine Color [place] H (Yellow) Urine Appearance Cloudy H (Clear) Urine pH 6.0 (5.0-8.0) Ur Specific [place] 1.025 (1.005-1.030) Urine Protein 3+ H (Negative) Urine Glucose (UA) Trace H (Negative) Urine Ketones 1+ H (Negative) Urine Occult Blood 3+ H (Negative) Urine Nitrite Positive H (Negative) Urine Bilirubin Negative (Negative) Urine Urobilinogen 1.0 (0.2-1.0) Ur Leukocyte Esterase 1+ H (Negative) Urine RBC 0-5 (0-5) /hpf Urine WBC >100 H (0-5) /hpf Ur Epithelial Cells 0-5 (0-5) /hpf Amorphous Sediment Many H (NOT SEEN) /hpf Urine Bacteria Many H (FEW) /hpf Urine Mucus Not seen (FEW) /hpf Meds: Medications Discontinued Medications Generic Name Dose Route Start Last Admin Trade Name Freq PRN Reason Stop Dose Admin Ceftriaxone Sodium 1 gm 05/25/17 20:50 05/25/17 21:02 Rocephin IM 05/25/17 20:51 1 gm ONETIME ONE Administration Lidocaine HCl 2 ml 05/25/17 20:51 05/25/17 21:02 Xylocaine-Mpf 1% INJECT 05/25/17 20:52 2 ml ONETIME ONE Administration - Radiology Interpretation Free Text/Narrative:: 26-year-old female presents to the ED with urinary tract symptoms starting back to May 22. She had left over antibiotics and took them for a day and a half. She felt improved for 1 day. Then symptoms recurred with frequency and urgency. She was in the clinic yesterday and started on Macrobid 100 mg twice a day. Of note she is breast-feeding. Over the last 6-8 hours she started developed fever and low back pain on the right side in the costovertebral angle. Suggest that she is developing a pyelonephritis. Urine cultures were taken at the clinic earlier today and therefore will not be repeated. Nurses have collected a urine for urinalysis and this will be ordered. Plan it is unlikely that the urine culture would be positive at this time since she's been on antibiotics. I will therefore give her Rocephin 1 g IM. This will be mixed with 2 mils of lidocaine 1%. She will continue Motrin 600 mg every 6 hours. For fever relief and continue Macrobid 100 mg twice a day. - Re-Assessments/Exams Free Text/Narrative Re-Assessment/Exam: 05/25/17 21:40: Urinalysis done in the ED today was strongly positive with 3+ occult blood. 3+ protein. Nitrate positive leukocyte Estrace +1+. However the micro-reveals greater than 100 WBCs per high-power field. Departure - Departure Time of Disposition: 20:54 Disposition: Home, Self-Care 01 Condition: Fair Clinical Impression: Pyelonephritis - Discharge Information Instructions: Pyelonephritis, Adult Referrals: PCP,None [Ordering Only Provider] - Forms: ED Department Discharge Additional Instructions: Evaluation in the emergency room today in regards to increasing right lower lobe low back pain with associated fever and chills. Symptoms of urinary tract infection started on May 22 and you took initial doses of leftover antibiotics which seem to improve the situation treated temporarily. He was seen at the clinic earlier today and diagnosed with UTI and started on Macrobid 100 mg twice daily which you have had one tablet. Unfortunately you're starting to show signs symptoms of upper urinary tract infection involving the right kidney. Therefore you are treated with intramuscular injection of Rocephin 1 g to bring the infection under control quickly. This medicine is also safe to use while breast-feeding. Continue the Macrobid 100 mg twice daily starting tomorrow morning again. Continue Motrin 600 mg every 6 hours as needed for relief of back pain and/or fever chills. Expect marked improvement over the next 24-36 hours if not return to medical care.
[2017-05-25 20:37] VITALS: BP 130/102
[2017-05-25] MEDS ORDERED: cefTRIAXone 1 GM Vial IM ONE (20:50)
[2017-05-25] MEDS ORDERED: Lidocaine 1% PF 2 ML SDV INJECT ONE (20:51)
== END 2017-05-25 21:12 | disposition home or self-care (01) ==
LOC: JD.ED 20:14
DX: N12 Tubulo-interstitial nephritis, not specified as acute or chronic (principal); I10 Essential (primary) hypertension; J45.909 Unspecified asthma, uncomplicated; Z88.1 Allergy status to other antibiotic agents; Z88.2 Allergy status to sulfonamides; R35.0 Frequency of micturition; N39.0 Urinary tract infection, site not specified
CPT/HCPCS: 81001; 87086; 87088; 87186; 96372; 99284; J0696; 99283